=== PATIENT | female | born 1955 | race Caucasian/White ===

== ENCOUNTER 2019-04-23 13:26 | Inpatient (IN) | payer MEDICARE ==
[~2019-04-23] VITALS: Ht 167.6 cm; Wt 129.9 kg
--- NOTE | 2019-04-23 14:00 | NUR ---
PT C/O SWELLING IN BLE AND SOB. PT ALSO STATES SHE IS HAVING VISION CHANGES - BLURRING AND STRANGE DISTORTION. 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
[2019-04-23] MEDS ORDERED: ASPIRIN 81 MG TABLET CHEW PO ONE (14:30)
[2019-04-23] MEDS ORDERED: SODIUM CHLORIDE FLUSH 10ML SYR IVF ONE (14:30)
[2019-04-23] MEDS ORDERED: FUROSEMIDE 40 MG/4 ML ONE (14:47)
[2019-04-23] MEDS ORDERED: ASPIRIN 81 MG TABLET CHEW ONE (14:48)
[2019-04-23 14:57] LABS: ANION GAP 6 mmol/L (5-15); CALCIUM 8.8 mg/dL (8.5-10.1); CHLORIDE 100 mmol/L (98-107)
[2019-04-23] MEDS ORDERED: FUROSEMIDE 40 MG/4 ML IV ONE (15:00)
--- NOTE | 2019-04-23 15:00 | NUR ---
PT RESTING. DENIES ANY NEEDS. VSS.
[2019-04-23 15:03] LABS: CREATININE 0.95 mg/dL (0.55-1.02); TROPONIN I 0.058 ng/mL (0.000-0.045)
[2019-04-23 15:08] LABS: BASOPHILS # (AUTO) 0.05 x10^3/uL (0-0.1); BASOPHILS % (AUTO) 1 % (0-1); EOSINOPHILS # (AUTO) 0.05 x10^3/uL (0-0.4); EOSINOPHILS % (AUTO) 1 % (1-7); LYMPHOCYTES # (AUTO) 0.99 x10^3/uL (1-3.4); LYMPHOCYTES % (AUTO) 13 % (22-44); MD NO; MEAN CORPUSCULAR HEMOGLOBIN 26.8 pg (27.0-34.8); MEAN CORPUSCULAR HGB CONC 30.9 g/dL (32.4-35.8); MEAN CORPUSCULAR VOLUME 86.9 fL (80-100); MEAN PLATELET VOLUME 8.8 fL (7.4-10.4); MONOCYTES # (AUTO) 0.71 x10^3/uL (0.2-0.8); MONOCYTES % (AUTO) 9 % (2-9); NEUTROPHILS # (AUTO) 6.13 x10^3/uL (1.8-6.8); NEUTROPHILS % (AUTO) 77 % (42-75); PLATELET COUNT 280 x10^3/uL (130-400); RED BLOOD COUNT 5.85 x10^6/uL (3.82-5.3); RED CELL DISTRIBUTION WIDTH 18.3 % (9.6-15.2)
[2019-04-23] MEDS ORDERED: HEPARIN 5,000 UNITS/ML, 1ML IV ONE ×2 (16:30→17:00)
[2019-04-23] MEDS ORDERED: HEPARIN 25,000 UNITS/500ML PMX 500 ML IV PRN ×2 (16:30→17:00)
[2019-04-23] MEDS ORDERED: HEPARIN 5,000 UNITS/ML, 1ML IV PRN ×2 (16:30→17:00)
--- NOTE | 2019-04-23 16:51 | NUR ---
POC DISCUSSED WITH PT. HEPARIN EDUCATION PROVIDED. PT VERBALIZED UNDERSTANDING.
[2019-04-23] MEDS ORDERED: LOSA100T14 PO (16:52)
[2019-04-23] MEDS ORDERED: FURO40TA6 PO (16:52)
[2019-04-23] MEDS ORDERED: METF500T27 PO (16:53)
[2019-04-23] MEDS ORDERED: ASPI-515 PO (16:54)
[2019-04-23] MEDS ORDERED: ATOR40TA78 PO (16:55)
[2019-04-23] MEDS ORDERED: METO-99 PO (16:56)
[2019-04-23] MEDS ORDERED: hydrALAzine 20 MG/ML, 1ML IVPush PRN (17:00)
[2019-04-23] MEDS ORDERED: HEPARIN 25,000 UNITS/500ML PMX 500 ML ONE (17:06)
[2019-04-23] MEDS ORDERED: HEPARIN 5,000 UNITS/ML, 1ML ONE (17:06)
--- NOTE | 2019-04-23 17:15 | NUR ---
report given to cristian
[2019-04-23 17:25] LABS: TROPONIN I 0.051 ng/mL (0.000-0.045)
--- NOTE | 2019-04-23 17:28 | NUR ---
PT AGREES WITH POC.
[2019-04-23 17:38] LABS: HEMOGLOBIN A1C 8.5 % (4.2-6.3)
[2019-04-23] MEDS ORDERED: METOPROLOL TARTRATE 100 MG TABLET PO SCH (18:00)
[2019-04-23 18:01] VITALS: BP 147/84
[2019-04-23] MEDS: FUROSEMIDE 40 MG/4 ML IV SCH (18:43)
[2019-04-23 19:27] VITALS: BP 146/90
[2019-04-23 22:53] LABS: TROPONIN I 0.059 ng/mL (0.000-0.045)
[2019-04-23] MEDS: INSULIN LISPRO 100 UNITS/ML, PEN SQ-INSULIN SCH (22:59)
[2019-04-24 01:23] VITALS: BP 139/72
[2019-04-24 05:49] LABS: ALBUMIN 3.2 g/dL (3.4-5.0); ANION GAP 2 mmol/L (5-15); CALCIUM 8.9 mg/dL (8.5-10.1); CHLORIDE 98 mmol/L (98-107)
[2019-04-24 05:54] LABS: MEAN CORPUSCULAR HEMOGLOBIN 26.4 pg (27.0-34.8); MEAN CORPUSCULAR HGB CONC 30.5 g/dL (32.4-35.8); MEAN CORPUSCULAR VOLUME 86.5 fL (80-100); MEAN PLATELET VOLUME 8.3 fL (7.4-10.4); PLATELET COUNT 267 x10^3/uL (130-400); RED CELL DISTRIBUTION WIDTH 18.5 % (9.6-15.2)
[2019-04-24 06:01] LABS: ALANINE AMINOTRANSFERASE 19 U/L (12-78); ALKALINE PHOSPHATASE 85 U/L (45-117); BILIRUBIN,TOTAL 0.7 mg/dL (0.2-1.0); CHOL/HDL RATIO 3.5; CHOLESTEROL, TOTAL 166 mg/dL (140-239); CREATININE 1.04 mg/dL (0.55-1.02); HDL CHOL % 28 % (28-40); HDL CHOLESTEROL (DIRECT) 47 mg/dL (40-60); LDL CHOLESTEROL,CALCULATED 91 mg/dL (54-169); LDL/HDL RATIO 1.9 (0.5-3.0); TOTAL PROTEIN 7.3 g/dL (6.4-8.2); TRIGLYCERIDES 139 mg/dL (50-200); VLDL CHOLESTEROL 28 mg/dL (0-25)
[2019-04-24] MEDS: ASPIRIN 325 MG TABLET EC PO SCH (06:10)
[2019-04-24 06:26] LABS: BASOPHILS # (AUTO) 0.12 x10^3/uL (0-0.1); BASOPHILS % (AUTO) 2 % (0-1); EOSINOPHILS # (AUTO) 0.14 x10^3/uL (0-0.4); EOSINOPHILS % (AUTO) 2 % (1-7); LYMPHOCYTES # (AUTO) 1.05 x10^3/uL (1-3.4); LYMPHOCYTES % (AUTO) 15 % (22-44); MD SCAN; MONOCYTES # (AUTO) 0.78 x10^3/uL (0.2-0.8); MONOCYTES % (AUTO) 11 % (2-9); NEUTROPHILS # (AUTO) 4.88 x10^3/uL (1.8-6.8); NEUTROPHILS % (AUTO) 70 % (42-75)
[2019-04-24 07:20] VITALS: BP 126/81
[2019-04-24] MEDS: INSULIN LISPRO 100 UNITS/ML, PEN SQ-INSULIN SCH ×4 (08:34→20:32)
[2019-04-24] MEDS: FUROSEMIDE 40 MG/4 ML IV SCH ×2 (08:35→16:42)
[2019-04-24] MEDS: LOSARTAN 50MG TABLET PO SCH (08:35)
[2019-04-24] MEDS: ENOXAPARIN 40 MG/0.4 ML SQ SCH (08:35)
[2019-04-24 12:11] VITALS: BP 143/82
[2019-04-24] MEDS: METOPROLOL TARTRATE 100 MG TABLET PO SCH (16:42)
[2019-04-24 20:24] VITALS: BP 117/76
[2019-04-25 00:45] VITALS: BP 122/76
[2019-04-25 05:34] LABS: ALBUMIN 2.8 g/dL (3.4-5.0); ANION GAP 3 mmol/L (5-15); CALCIUM 8.5 mg/dL (8.5-10.1); CHLORIDE 98 mmol/L (98-107)
[2019-04-25 05:39] LABS: ALANINE AMINOTRANSFERASE 17 U/L (12-78); ALKALINE PHOSPHATASE 78 U/L (45-117); BILIRUBIN,TOTAL 0.7 mg/dL (0.2-1.0); CREATININE 0.84 mg/dL (0.55-1.02); TOTAL PROTEIN 6.7 g/dL (6.4-8.2)
[2019-04-25 06:50] LABS: BASOPHILS # (AUTO) 0.05 x10^3/uL (0-0.1); BASOPHILS % (AUTO) 1 % (0-1); EOSINOPHILS # (AUTO) 0.27 x10^3/uL (0-0.4); EOSINOPHILS % (AUTO) 3 % (1-7); LYMPHOCYTES % (AUTO) 13 % (22-44); MD SCAN; MEAN CORPUSCULAR HEMOGLOBIN 26.7 pg (27.0-34.8); MEAN CORPUSCULAR HGB CONC 30.1 g/dL (32.4-35.8); MEAN CORPUSCULAR VOLUME 88.5 fL (80-100); MEAN PLATELET VOLUME 8.9 fL (7.4-10.4); MONOCYTES # (AUTO) 1.08 x10^3/uL (0.2-0.8); MONOCYTES % (AUTO) 13 % (2-9); NEUTROPHILS # (AUTO) 5.75 x10^3/uL (1.8-6.8); NEUTROPHILS % (AUTO) 70 % (42-75); PLATELET COUNT 231 x10^3/uL (130-400); RED BLOOD COUNT 5.44 x10^6/uL (3.82-5.3); RED CELL DISTRIBUTION WIDTH 18.5 % (9.6-15.2)
[2019-04-25] MEDS: ASPIRIN 325 MG TABLET EC PO SCH (07:32)
[2019-04-25] MEDS: METOPROLOL TARTRATE 100 MG TABLET PO SCH ×2 (07:32→16:51)
[2019-04-25 08:52] VITALS: BP 144/83
[2019-04-25] MEDS: FUROSEMIDE 40 MG/4 ML IV SCH ×2 (08:54→16:51)
[2019-04-25] MEDS: ENOXAPARIN 40 MG/0.4 ML SQ SCH (08:54)
[2019-04-25] MEDS: LOSARTAN 50MG TABLET PO SCH (08:54)
[2019-04-25] MEDS: INSULIN LISPRO 100 UNITS/ML, PEN SQ-INSULIN SCH ×4 (08:54→21:08)
[2019-04-25 15:27] VITALS: BP 130/84
[2019-04-25 16:45] VITALS: BP 143/88
[2019-04-25 20:52] VITALS: BP 110/63
[2019-04-26 00:54] VITALS: BP 120/86
[2019-04-26 05:40] LABS: CALCIUM 8.7 mg/dL (8.5-10.1); CHLORIDE 94 mmol/L (98-107)
[2019-04-26 05:43] LABS: MEAN CORPUSCULAR HEMOGLOBIN 26.7 pg (27.0-34.8); MEAN CORPUSCULAR HGB CONC 30.8 g/dL (32.4-35.8); MEAN CORPUSCULAR VOLUME 86.7 fL (80-100); MEAN PLATELET VOLUME 8.6 fL (7.4-10.4); PLATELET COUNT 220 x10^3/uL (130-400); RED BLOOD COUNT 5.55 x10^6/uL (3.82-5.3); RED CELL DISTRIBUTION WIDTH 18.2 % (9.6-15.2)
[2019-04-26 05:45] LABS: ALANINE AMINOTRANSFERASE 19 U/L (12-78); ALBUMIN 2.8 g/dL (3.4-5.0); ALKALINE PHOSPHATASE 69 U/L (45-117); ANION GAP 7 mmol/L (5-15); BILIRUBIN,TOTAL 0.8 mg/dL (0.2-1.0); CREATININE 0.72 mg/dL (0.55-1.02); TOTAL PROTEIN 6.8 g/dL (6.4-8.2)
[2019-04-26 06:07] LABS: BASOPHILS # (AUTO) 0.05 x10^3/uL (0-0.1); BASOPHILS % (AUTO) 1 % (0-1); EOSINOPHILS # (AUTO) 0.26 x10^3/uL (0-0.4); EOSINOPHILS % (AUTO) 4 % (1-7); LYMPHOCYTES # (AUTO) 1.03 x10^3/uL (1-3.4); LYMPHOCYTES % (AUTO) 17 % (22-44); MD SCAN; MONOCYTES # (AUTO) 0.78 x10^3/uL (0.2-0.8); MONOCYTES % (AUTO) 13 % (2-9); NEUTROPHILS % (AUTO) 65 % (42-75)
[2019-04-26] MEDS: METOPROLOL TARTRATE 100 MG TABLET PO SCH (06:26)
[2019-04-26] MEDS: ASPIRIN 325 MG TABLET EC PO SCH (06:26)
[2019-04-26] MEDS ORDERED: POTASSIUM CHLORIDE 20 MEQ TAB.ER.PRT PO ONE (07:00)
[2019-04-26 07:43] VITALS: BP 137/84
[2019-04-26] MEDS: LOSARTAN 50MG TABLET PO SCH (08:02)
[2019-04-26] MEDS: FUROSEMIDE 40 MG/4 ML IV SCH (08:02)
[2019-04-26] MEDS: ENOXAPARIN 40 MG/0.4 ML SQ SCH (08:03)
[2019-04-26] MEDS: INSULIN LISPRO 100 UNITS/ML, PEN SQ-INSULIN SCH (08:03)
[2019-04-26] MEDS ORDERED: POTA20TA6 PO (08:08)
[2019-04-26] MEDS ORDERED: FURO40TA6 PO (08:08)
== END 2019-04-26 11:48 | disposition home or self-care (01) | DRG 280 ==
LOC: ED 15:41 → EDIP 16:19 → 5SO 17:44
PROVIDERS: ADMIT Hospitalist; ATTEND Hospitalist
PROC: 5A09457 Assistance with Respiratory Ventilation, 24-96 Consecutive Hours, Continuous Positive Airway Pressure (ICD-10-PCS; principal; 2019-04-24)
DX: I21.4 Non-ST elevation (NSTEMI) myocardial infarction (principal); I50.31 Acute diastolic (congestive) heart failure; J96.01 Acute respiratory failure with hypoxia; Z68.42 Body mass index [BMI] 45.0-49.9, adult; I11.0 Hypertensive heart disease with heart failure; I50.810 Right heart failure, unspecified; E11.9 Type 2 diabetes mellitus without complications; E66.01 Morbid (severe) obesity due to excess calories; E78.5 Hyperlipidemia, unspecified; G47.30 Sleep apnea, unspecified; H54.7 Unspecified visual loss; Z79.84 Long term (current) use of oral hypoglycemic drugs; Z79.82 Long term (current) use of aspirin; Z99.81 Dependence on supplemental oxygen; Z88.5 Allergy status to narcotic agent
CPT/HCPCS: 36415; 71045; 80048; 80053; 80061; 82040; 82962; 83036; 83880; 84443; 84484; 85025; 85520; 93005; 93306; 94660; 99291; G0378; J1644; J1650; J1940; J1815

== ENCOUNTER 2019-08-24 08:15 | Outpatient (CLI) | payer MEDICARE ==
[~2019-08-24 08:15] MED LIST: ASPI-515 PO; ATOR40TA78 PO; FURO40TA6 PO; LOSA100T14 PO; METF500T27 PO; METO-99 PO; POTA20TA6 PO; REGADENOSON 0.4 MG/5 ML SYRINGE ONE
== END 2019-08-24 23:59 | disposition home or self-care (01) ==
LOC: CFH 08:15
PROVIDERS: ATTEND Internal Medicine Cardiovascular Disease
DX: I11.0 Hypertensive heart disease with heart failure (principal); R06.02 Shortness of breath; E11.9 Type 2 diabetes mellitus without complications; Z88.5 Allergy status to narcotic agent
CPT/HCPCS: 78452; 93017; A9502; J2785

== ENCOUNTER → 2021-05-26 | Outpatient (CLI) | payer MEDICARE ==
[~2021-05-26] MED LIST changes: -ASPI-515 PO; +ASPI-963 PO; -REGADENOSON 0.4 MG/5 ML SYRINGE ONE
== END | disposition home or self-care (01) ==
LOC: CVU 09:59
PROVIDERS: ATTEND Internal Medicine Cardiovascular Disease
DX: I11.9 Hypertensive heart disease without heart failure (principal); R06.02 Shortness of breath
CPT/HCPCS: 93306